=== PATIENT | female | born 1995 | race Caucasian/White ===

== ENCOUNTER 2017-12-08 10:40 | Outpatient (CLI) | payer BC, SELFPAY | END 2017-12-08 12:15 | disposition home or self-care (01) | LOC: WPOUT 10:49 → WP 10:50 | PROVIDERS: Visit Provider Pediatrics | DX: R63.3 Feeding difficulties (principal) | CPT/HCPCS: 96152 ==

== ENCOUNTER 2019-09-05 05:15 | Inpatient (IN) | payer BC, SELFPAY ==
[2019-09-05] VITALS (24 sets, daily range): BP systolic 90–127; BP diastolic 41–78; PULSE 75–115; RESP 12–16; TEMP 36–37.3; O2SAT 94–99; BMI 28.9
[2019-09-05] MEDS: Lactated Ringers 1,000 ML 999 ML IV (05:40)
[2019-09-05 06:03] LABS: Absolute Neutrophil Count 7.4 X10^3/uL (2.0-7.7); Basophil# 0.03 X10^3/uL; Basophil% 0.3 % (0-1); Eosinophil# 0.11 X10^3/uL; Eosinophils% 0.9 % (0-5); Hematocrit 36.7 % (37-47); Hemoglobin 11.8 g/dL (12.0-15.0); Lymphocyte % 25.4 % (19-41); Mean Corp Hgb Conc 32.2 g/dL (32-36); Mean Corpuscular Hgb 27.7 pg (27.0-32.0); Mean Corpuscular Volume 86.2 fL (81-99); Mean Platelet Vol. 9.8 fl (6.2-12.0); Monocyte# 1.23 X10^3/uL; Monocyte% 10.4 % (0-10); NRBC Flagged by Analyzer 0 % (0-5); Neutrophil # 7.38 X10^3/uL (2.7-7.7); Neutrophil % 62.3 % (47-70); Platelet Count 290 K/mm3 (150-450); RBC Distribution Width CV 15.2 % (11.6-14.6); RBC Distribution Width SD 47.2 fl (35.1-43.9); Red Blood Count 4.26 M/mm3 (4.2-5.4); White Blood Count 11.8 K/mm3 (4.4-11.0)
[2019-09-05] MEDS: Sodium Citrate/Citric Acid 30 ML UDC PO (07:01)
[2019-09-05] MEDS: Lactated Ringers 1,000 ML 150 ML IV (07:01)
[2019-09-05] MEDS: Cefazolin 2 GM in 0.9% Normal Saline 100 ML IV (07:48)
--- NOTE | 2019-09-05 08:54 | PCM.HP.OB ---
- Problem List (1) 39 weeks gestation of Status: Acute (2) Multiparity Status: Acute (3) History of section Status: Acute History Date of Admission: 09/06/19 Final ANNABELLE: 09/12/19 Gestational age: 39 Weeks and 1 Days History of this : This is a 23 year-old, G 2, P 1, at 39 weeks gestational age who presents for a scheduled repeat section. Allergies No Known Allergies Allergy (Verified 09/05/19 05:45) Home Medications: Home Medications Vits [Prenatabs FA] 1 tab PO DAILY 09/05/19 Smoking Status: Never smoker Number of Fetus(es): 1 NST - FHR Rate Baby A NST Reactive:: Yes FHR Category:: Category I History Past Pregnancies: Past Pregnancies Delivery Date Name GA/ Weeks Outcome Route Wt Sex Labor Length Anesthesia Delivery Location Provider FOB Labs: See Epic Expected Delivery Method: Scheduled Section Review of Systems Gynecological: Reports: - - No ctx, vb, lof. Good FM Physical Exam Vitals: Vital Signs Temp Pulse BP Pulse Ox 98.5 F 115 H 112/76 96 09/05/19 05:27 09/05/19 05:27 09/05/19 05:27 09/05/19 05:27 General: Alert, No apparent distress HEENT: Atraumatic Abdomen: Soft, Gravid Extremities:: No edema Neurological: Neuro grossly intact Estimated gestational size: Appropriate for gestational size Presentation: Cephalic Assessment/Plan All Active Problems 39 weeks gestation of (Acute) Multiparity (Acute) History of section (Acute) This is a 23 year-old, G 2, P 1, at 39 weeks gestational age resents for scheduled repeat . -Routine preop care -Risks, benefits, alternatives to repeat section were discussed with the patient and she desired to proceed with surgery. Consent was signed
--- NOTE | 2019-09-05 08:55 | PCM.OPRPT ---
Problem List (1) 39 weeks gestation of Status: Acute (2) Multiparity Status: Acute (3) History of section Status: Acute Report of Operation Date of Procedure: 09/06/19 Pre-Operative Diagnosis: 39 week gestation, history of prior section Post-Operative Diagnosis: As above Surgery/Procedure Performed:: RLTCS via pfannenstiel incision Description of Surgical Findings:: Clear fluid. Viable infant in vertex position. Normal and intact appearing placenta with three-vessel cord. Normal-appearing uterus, bilateral tubes, bilateral ovaries. Moderate to significant amount of adhesive disease in the pelvis. The fascia was significantly adhered to the rectus, which was also significantly adhered to the peritoneum. The fascia, rectus, and peritoneum were adhered in one large layer. The bladder was adhered to the anterior surface of the uterus. Type of Anesthesia:: Spinal Special Medications: None Specimen's removed: Placenta Drains: Minor Estimated Blood Loss (mL): 900 Fluids Replaced: 1200 Description of Procedure: She was taken to the operating room where spinal anesthesia was induced. She was prepped and draped in the dorsal position with a leftward tilt in the usual sterile fashion. The spinal anesthesia was not adequate, so lidocaine was injected along the incision. She was also given medication through IV by anesthesia. A scalpel was used along the prior Pfannenstiel skin incision to carry the incision down to the underlying layer of the fascia. The fascia was incised in the midline. The fascia was extended laterally using Hutton scissors. The rectus muscles were already in the midline. The fascia was densely adhered to the rectus muscles and in dissecting the fascia off of the rectus muscles the peritoneum was entered. A sweep was performed in the peritoneal cavity noting no adhesions of the peritoneum to the uterus. The rectus muscles were extended laterally. Gillian incision was extended with good good visualization of the bladder. The bladder was noted to be significantly adhered to the undersurface of the uterus. A bladder flap was created. A low transverse incision was made with a scalpel on the uterus. The membranes were ruptured with an Allis for clear fluid. Infant was noted to be in vertex presentation. Infant was delivered without any force or delay. The infant was delivered atraumatically and the cord was clamped and cut after a 60 sec delay. Infant was handed off to the nursery staff. The placenta was removed with manual extraction and noted to be normal-appearing and intact with a three-vessel cord. The uterus was exteriorized from the abdomen. The uterus was cleared of all clot debris. The uterus was closed with Vicryl in a running locked fashion. Several additional [id number] sutures were placed for hemostasis. The uterus was then placed back in the abdomen and hemostasis was again noted. Nicanor was placed over the incision. The patient was uncomfortable at this time and additional IV medication was given by anesthesia. The rectus muscles were made hemostatic with Bovie cautery. The fascia was then closed in a running fashion with Vicryl. The subcutaneous space was irrigated and made hemostatic with Bovie cautery. The skin was cut closed with Monocryl in a subcuticular fashion. Steri-Strips and a dressing were placed. Instrument counts were correct. The patient was taken to the recovery room in stable condition. Grafts/Implants Used: None - Complications None - Admit VTE Documentation VTE Present on Admission: No VTE Mechan Device Prophylaxis: SCD's VTE Pharm Prophylaxis ordered?: No Delivery Classification: Scheduled Indications for : Repeat Elective Amniotic Membrane Rupture Type: Spontaneous Amniotic Fluid Description: Clear Drain: Minor to straight drain Cord Entanglement: None Cord Vessel Description: 3 Vessels Delayed cord clamping: Yes Antibiotic Given: Ancef 2 grams IV x1 Pt instructed on risks of surgery: Bleeding, Infection, Need for Future C-Sections, Injury to surrounding structure(s) including bowel and bladder Complications: None
[2019-09-05] MEDS: Oxytocin 30 units/NS 500 ml 30 UNITS/500 ML IV.SOLN 167 UNITS IV (09:15)
[2019-09-05] MEDS: 0.9% Saline Lock 10 ML Syringe IV ×3 (09:38→23:25)
[2019-09-05] MEDS: proCHLORPERazine 10 MG/2 ML Vial IV (09:38)
--- NOTE | 2019-09-05 11:30 | NURSING ---
Indwelling tsang catheter present. WNL.
[2019-09-05] MEDS: Lactated Ringers 1,000 ML 100 ML IV (12:22)
[2019-09-05] MEDS: Ketorolac 30 MG/ML Syringe IV ×3 (12:39→23:25)
[2019-09-06] VITALS (7 sets, daily range): BP systolic 97–109; BP diastolic 54–64; PULSE 84–100; RESP 16–18; TEMP 36.8–37.3; O2SAT 96–97
[2019-09-06 04:44] LABS: Hematocrit 34.1 % (37-47); Hemoglobin 10.9 g/dL (12.0-15.0); Mean Corpuscular Hgb 27.6 pg (27.0-32.0); Mean Corpuscular Volume 86.3 fL (81-99); Mean Platelet Vol. 9.5 fl (6.2-12.0); Platelet Count 266 K/mm3 (150-450); RBC Distribution Width CV 15.5 % (11.6-14.6); RBC Distribution Width SD 48.8 fl (35.1-43.9); Red Blood Count 3.95 M/mm3 (4.2-5.4); White Blood Count 18.9 K/mm3 (4.4-11.0)
[2019-09-06] MEDS: Ketorolac 30 MG/ML Syringe IV ×4 (05:38→23:51)
[2019-09-06] MEDS: 0.9% Saline Lock 10 ML Syringe IV ×3 (05:38→18:12)
--- NOTE | 2019-09-06 09:55 | PCM.PN.OB ---
Patient Problems: Active and Suspected Problems 39 weeks gestation of (Acute) Multiparity (Acute) History of section (Acute) Subjective: Patient is doing well today. Pain is well controlled. She is ambulating and voiding without difficulty. Tolerating regular diet without nausea or vomiting. She denies lightheadedness, dizziness, chest pain, shortness of breath, leg pain. Lochia normal. - Physical Exam Vitals/I&O's: Vital Signs Temp Pulse Resp BP Pulse Ox 98.2 F 100 18 97/54 L 97 09/06/19 08:14 09/06/19 08:14 09/06/19 08:14 09/06/19 08:14 09/06/19 08:14 Oxygen Delivery Method Room Air Weight: 158 lb 4.67 oz Body Mass Index (BMI) 28.9 Intake and Output for Last 24 Hours 09/04/19 09/05/19 09/06/19 23:59 23:59 23:59 Intake Total 3181.67 / 3181.67 1999 / 1999 Output Total 550 / 550 250 / 250 Balance 2631.67 / 2631.67 1750 / 1750 General: Alert, No apparent distress HEENT: Atraumatic Lungs: Normal air movement Abdomen: Soft, Non Tender, Non-Distended, - - FF@U, dressing c/d/i Extremities: No edema, No Calf Tenderness Skin: No rashes Neurological: Neuro grossly intact Psych/Mental Status: Normal Affect, Appropriate Laboratory Results 09/06/19 04:35: WBC 18.9 H, RBC 3.95 L, Hgb 10.9 L, Hct 34.1 L, MCV 86.3, MCH 27.6, MCHC 32.0, RDW Std Deviation 48.8 H, RDW Coeff of Zulema 15.5 H, Plt Count 266, MPV 9.5 Current Medications Acetaminophen (Tylenol) 1,000 mg PO Q8H PRN PRN Reason: Pain Score 1-3/10 Bisacodyl (Dulcolax) 10 mg RECTAL UD PRN PRN Reason: If no BM Hydrocortisone (Hytone) 1 applic TOPICAL TID PRN PRN; Protocol PRN Reason: Discomfort Lactated Ringer's () 1,000 mls @ 100 mls/hr IV .Q10H RAS Last Admin: 03/12/20 05:19 Dose: Not Given Documented by: Naloxone HCl 4 mg/ Dextrose 504 mls @ 0 mls/hr IV .Q0M PRN; Protocol PRN Reason: Respiratory depression Ibuprofen (Motrin) 600 mg PO Q6H PRN PRN PRN Reason: Pain Score 1-3/10 Ketorolac Tromethamine (Toradol (Bkc)) 30 mg IV Q6H RAS Stop: 09/07/19 06:01 Last Admin: 09/06/19 05:38 Dose: 30 mg Documented by: Methylergonovine Maleate (Methergine) 0.2 mg IM X1 PRN PRN Reason: Uterine Atony Naloxone HCl (Narcan) 0.02 mg IV Q1M PRN PRN Reason: RR <10 and pt unresponsive Ondansetron HCl (Zofran) 4 mg IV Q4H PRN PRN PRN Reason: Nausea Oxycodone HCl (Oxyir) 5 - 10 mg PO Q4H PRN PRN PRN Reason: Pain Score 4-10/10 Prochlorperazine Edisylate (Compazine Iv) 10 mg IV Q6H PRN PRN PRN Reason: NAUSEA Last Admin: 09/05/19 09:38 Dose: 10 mg Documented by: Senna/Docusate Sodium (Senokot-S, Leonila-Colace) 0 tablet PO DAILY PRN PRN Reason: Constipation Simethicone (Mylicon) 80 mg PO PCHS PRN PRN Reason: Indigestion/stomach pain Sodium Chloride () 5 - 15 ml IV UD PRN PRN Reason: SALINE FLUSH Last Admin: 09/06/19 05:38 Dose: 10 ml Documented by: Medical Necessity - Tobacco Use Smoking Status: Never smoker Assessment/Plan All Active Problems 39 weeks gestation of (Acute) Multiparity (Acute) History of section (Acute) Patient is postop day 1 from a scheduled repeat section. She is doing well. Pain is well controlled. Dispo: Discharge to home tomorrow. New routine postoperative care.
--- NOTE | 2019-09-06 11:43 | NURSING ---
verbal instruction and written letter from [facility] given to patient and regarding Coronavirus and precautions implemented by [facility] at this time. Pt and both verbalize understanding
[2019-09-07 01:30] VITALS: BP 104/58; PULSE 93; RESP 16; TEMP 37.3; O2SAT 96
[2019-09-07] MEDS: Ketorolac 30 MG/ML Syringe IV (06:02)
[2019-09-07] MEDS: 0.9% Saline Lock 10 ML Syringe IV (06:03)
[2019-09-07 08:06] VITALS: BP 107/70; PULSE 84; RESP 16; TEMP 37.2; O2SAT 96
[2019-09-07] MEDS: Senna/Docusate Sodium 1 Tablet PO ×2 (08:24)
--- NOTE | 2019-09-07 09:29 | PCM.PN.OB ---
Patient Problems: Active and Suspected Problems 39 weeks gestation of (Acute) Multiparity (Acute) History of section (Acute) Subjective: Doing well this morning. Pain well controlled. She is ambulating voiding without difficulty. Tolerating regular diet without nausea or vomiting. She denies lightheadedness, dizziness, chest pain, shortness of breath, leg pain. Lochia normal. - Physical Exam Vitals/I&O's: Vital Signs Temp Pulse Resp BP Pulse Ox 98.9 F 84 16 107/70 96 09/07/19 08:06 09/07/19 08:06 09/07/19 08:06 09/07/19 08:06 09/07/19 08:06 Oxygen Delivery Method Room Air Weight: 158 lb 4.67 oz Body Mass Index (BMI) 28.9 Intake and Output for Last 24 Hours 09/05/19 09/06/19 09/07/19 23:59 23:59 23:59 Intake Total 3181.67 / 3181.67 1999 / 1999 Output Total 550 / 550 250 / 250 Balance 2631.67 / 2631.67 1750 / 1750 General: Alert, No apparent distress HEENT: Atraumatic Abdomen: Soft, - - ATTP, dressing clean and dry, FF@U-1 Extremities: No edema, No Calf Tenderness Skin: No rashes Neurological: Neuro grossly intact Psych/Mental Status: Normal Affect, Appropriate Current Medications Acetaminophen (Tylenol) 1,000 mg PO Q8H PRN PRN Reason: Pain Score 1-3/10 Bisacodyl (Dulcolax) 10 mg RECTAL UD PRN PRN Reason: If no BM Hydrocortisone (Hytone) 1 applic TOPICAL TID PRN PRN; Protocol PRN Reason: Discomfort Naloxone HCl 4 mg/ Dextrose 504 mls @ 0 mls/hr IV .Q0M PRN; Protocol PRN Reason: Respiratory depression Ibuprofen (Motrin) 600 mg PO Q6H PRN PRN PRN Reason: Pain Score 1-3/10 Methylergonovine Maleate (Methergine) 0.2 mg IM X1 PRN PRN Reason: Uterine Atony Naloxone HCl (Narcan) 0.02 mg IV Q1M PRN PRN Reason: RR <10 and pt unresponsive Ondansetron HCl (Zofran) 4 mg IV Q4H PRN PRN PRN Reason: Nausea Oxycodone HCl (Oxyir) 5 - 10 mg PO Q4H PRN PRN PRN Reason: Pain Score 4-10/10 Prochlorperazine Edisylate (Compazine Iv) 10 mg IV Q6H PRN PRN PRN Reason: NAUSEA Last Admin: 09/05/19 09:38 Dose: 10 mg Documented by: Senna/Docusate Sodium (Senokot-S, Leonila-Colace) 0 tablet PO DAILY PRN PRN Reason: Constipation Last Admin: 09/07/19 08:24 Dose: 1 tablet Documented by: Simethicone (Mylicon) 80 mg PO PCHS PRN PRN Reason: Indigestion/stomach pain Sodium Chloride () 5 - 15 ml IV UD PRN PRN Reason: SALINE FLUSH Last Admin: 09/07/19 06:03 Dose: 10 ml Documented by: Medical Necessity - Tobacco Use Smoking Status: Never smoker Assessment/Plan All Active Problems 39 weeks gestation of (Acute) Multiparity (Acute) History of section (Acute) Patient is postoperative day 2 status post a scheduled repeat section. She is doing well. Viable male is doing well. She is meeting all milestones for discharge and desires to go home today. Discharge instructions reviewed. To follow-up in the office.
--- NOTE | 2019-09-07 09:31 | DCINST_ITS ---
Discharge Diet: No Restrictions Discharge Activity: May not drive while taking narcotic pain medications., May Shower May shower in (days): 0 May resume sexual activity in: 6 weeks Ice area for (Minutes): 15 Weight Bearing Status: Weight bearing as tolerated Lifting Restrictions: Nothing greater than 20 lbs Call your doctor if your incision/area has: Continuous Slow Oozing, Sudden Inc reased Bleeding, Increased Pain/ Swelling, Increased Redness, Foul Smelling Discharge, Swelling at the incision site Call your doctor if you observe: Fever of 101 or Higher, Inability to urinate, Inability to have a bowel movement, Using more than one pad per hour, Shortness of breath, Dizziness, Chest pain, Increased palpitations (irregular heartbeat), Calf discomfort, Uncontrolled pain Suture Line Care: Avoid Pulling/Pushing, Avoid Pinching/Bending Remove Dressing in (days):: 1 Cleanse incision/area with: Soap & Water Additional Instructions: If you experience any of the following, contact your healthcare provider. * Bleeding that soaks a pad every hour for 2 hours * Fever 100.4 or higher * Unrelieved incision or abdominal pain * Swelling, redness, discharge or bleeding from your incision or episiotomy site * Your incision begins to separate * Problems urinating (including inability to urinate or burning while urinating). * Visual changes * Severe headache * Flu-like symptoms * Pain or redness in one of both of your breasts * Pain, warmth, tenderness or swelling in your legs, especially the calf area * Frequent nausea and vomiting * Symptoms of depression or anxiety If you experience any of the following, call 911 or go to the nearest Emergency Room. * Chest pain * Problems breathing * Seizure activity * Partial or complete paralysis of a body part, slurred speech, weakness or drooping of the face, or a sudden inability to walk or hold your balance Allergies/Adverse Reactions: Allergies No Known Allergies Allergy (Verified 09/05/19 05:45) Medications to take at Discharge Vits [Prenatabs FA] 1 tab PO DAILY 09/05/19 Docusate Sodium [Colace] 100 mg PO BID #30 cap 09/07/19 Ibuprofen [Motrin] 600 mg PO Q6H #30 tab 09/07/19 Oxycodone HCl/Acetaminophen [Percocet 5/325] 1 tablet PO Q6H PRN PRN 7 Days #15 tablet 09/07/19 The following prescriptions were given: Docusate Sodium [Colace] 100 mg PO BID #30 cap Transmission Status: Pending to [facility] [id number] [facility] [employer] Ibuprofen [Motrin] 600 mg PO Q6H #30 tab Transmission Status: Pending to [facility] [id number] [facility] [employer] Oxycodone HCl/Acetaminophen [Percocet 5/325] 1 tablet PO Q6H PRN PRN 7 Days #15 tablet PRN Reason: Pain Score 6-10/10 Transmission Status: Received by [place] [id number] [facility] [employer] Follow-Up: Call to make an appointment with your doctor for an incision check in 1-2 weeks. You will also need a 6 week post- follow up appointment. Test results from this visit will be discussed in further detail at your follow- up appointment, if applicable. Please Follow Up With: Elise Gross DO When: 1 week and 6 weeks Primary Care Physician: Care Physician,No Primary [Primary Care Provider] -
[2019-09-07] MEDS: Acetaminophen 500 MG Tablet 1000 MG PO (10:36)
== END 2019-09-07 11:00 | disposition home or self-care (01) | DRG 788 ==
PROVIDERS: Admitting Provider Obstetrics & Gynecology; Referring Provider Obstetrics & Gynecology; Visit Provider Obstetrics & Gynecology
PROC: (CPT 59514; principal; 2019-09-05 07:15)
DX: O34.211 Maternal care for low transverse scar from previous cesarean delivery (principal); Z37.0 Single live birth; Z3A.39 39 weeks gestation of pregnancy
CPT/HCPCS: 85025; 85027; 86850; 86900; 86901; 99218; 99251; J7120; A4216; G0378; G0463; J2405